=== PATIENT | male | born 1950 | race Caucasian/White ===

== ENCOUNTER 2024-03-20 16:52 | Inpatient (IN) | payer OTHER, MEDICARE ==
[~2024-03-20] VITALS: Ht 177.8 cm; Wt 82.7 kg
[2024-03-20 17:54] LABS: BASOPHILS % (AUTO) 0.5 % (0-1); EOSINOPHILS # (AUTO) 0.1 X10'3 (0-0.9); HEMATOCRIT 40.2 % (42.0-52.0); HEMOGLOBIN 13.5 g/dl (14.0-17.9); LYMPHOCYTES # (AUTO) 1.1 X10'3 (1.1-4.8); LYMPHOCYTES % (AUTO) 16.5 % (21-51); MEAN CORPUSCULAR HGB CONC 33.5 g/dL (33.0-36.5); MEAN CORPUSCULAR VOLUME 86.6 FL (78-98); MEAN PLATELET VOLUME 8.8 FL (7.4-10.4); MONOCYTES # (AUTO) 0.6 X10'3 (0-0.9); MONOCYTES % (AUTO) 8.9 % (2-12); NEUTROPHILS # (AUTO) 4.8 X10'3 (1.8-7.7); NEUTROPHILS % (AUTO) 72.1 % (42-75); PLATELET COUNT 232 X10'3 (140-440); RED BLOOD COUNT 4.64 X10'6 (4.70-6.10); RED CELL DISTRIBUTION WIDTH 14.7 % (11.5-14.5); WHITE BLOOD COUNT 6.6 X10'3 (4.5-11.0)
[2024-03-20 18:13] LABS: ALBUMIN 3.6 G/DL (3.4-5.0); ANION GAP 6 (8-16); BLOOD UREA NITROGEN 19 MG/DL (7-18); CALCIUM 8.7 MG/DL (8.5-10.1); CHLORIDE 109 MMOL/L (99-107); GLUCOSE 93 MG/DL (70-104); POTASSIUM 4.3 MMOL/L (3.5-5.1); SODIUM 144 MMOL/L (135-145); THYROID STIMULATING HORMONE 1.17 ulU/ml (0.34-4.50); TOTAL CARBON DIOXIDE 29.1 MMOL/L (24-32); eCRCL 66 ML/MIN; eGFR 73 ML/MIN
[2024-03-20 18:16] LABS: ETHANOL < 10 MG/DL (<10)
[2024-03-20] MEDS ORDERED: ESCI-8 PO (19:46)
[2024-03-20] MEDS ORDERED: BUSP5TAB3 PO (19:46)
[2024-03-20] MEDS ORDERED: TRAZ150T78 PO (19:46)
[2024-03-20] MEDS ORDERED: GABA-530 PO (19:46)
[2024-03-20] MEDS ORDERED: LOP12.5T PO (19:46)
[2024-03-20] MEDS ORDERED: AMLO2.5T4 PO (19:46)
[2024-03-20] MEDS: haloperidol 5mg tablet PO ONE (23:12)
[2024-03-21 05:28] LABS: BILIRUBIN,URINE NEGATIVE (Neg); CLARITY,URINE CLEAR (Clear); COLOR,URINE STRAW (Yellow); GLUCOSE, URINE NEGATIVE (Neg); KETONES,URINE NEGATIVE (Neg); LEUKOCYTE ESTERASE ,URINE NEGATIVE (Neg); NITRITES, URINE NEGATIVE (Neg); OCCULT BLOOD,URINE TRACE-INTACT (Neg); PROTEIN,URINE NEGATIVE (Neg); UROBILINOGEN,URINE 0.2 E.U/dL (0.2-1.0)
[2024-03-21 05:31] LABS: UA COLLECTION TYPE VOIDED
[2024-03-21 05:34] LABS: BACTERIA,URINE NONE SEEN /HPF (Neg); MUCUS STRANDS NONE SEEN /LPF (Neg); RBC,URINE NONE SEEN /HPF (0-2); SQUAMOUS EPITHELIAL CELL,UR FEW /LPF (FEW); WBC,URINE 0-4 /HPF (0-4)
[2024-03-21 06:08] LABS: URINE AMPHETAMINE SCREEN NEGATIVE (Neg); URINE BARBITUATE SCREEN NEGATIVE (Neg); URINE BENZODIAZEPINES SCREEN NEGATIVE (Neg); URINE CANNABINOID SCREEN NEGATIVE (Neg); URINE COCAINE SCREEN NEGATIVE (Neg); URINE METHADONE SCREEN NEGATIVE (Neg); URINE OPIATE SCREEN NEGATIVE (Neg); URINE PHENCYCLIDINE SCREEN NEGATIVE (Neg)
[2024-03-21] MEDS: ESCITALOPRAM 10 mg tablet 10 MG TABLET PO SCH (09:03)
[2024-03-21] MEDS: busPIRone 5mg tablet PO SCH (09:03)
[2024-03-21] MEDS: metoprolol tartrate 25mg tablet PO SCH (09:03)
[2024-03-21] MEDS: amLODIPine 2.5mg tablet PO SCH (09:03)
[2024-03-21] MEDS: gabapentin 100mg capsule PO SCH (09:03)
[2024-03-21] MEDS ORDERED: magnesium sulf-water 2g/50mL 50 ML IV PRN (19:35)
[2024-03-21] MEDS ORDERED: magnesium sulf-water 4G/100mL 100 ML IV PRN (19:35)
[2024-03-21] MEDS ORDERED: potassium Cl 20 mEq SR tablet PO PRN ×2 (19:35)
[2024-03-21] MEDS ORDERED: potassium Cl 40MEQ/1/2NS 520ml 520 ML IV PRN (19:35)
[2024-03-21] MEDS ORDERED: magnesium Cl slow-release 64mg tablet PO PRN (19:35)
[2024-03-21] MEDS: traZODone 150mg tablet PO SCH (19:54)
[2024-03-21] MEDS: K and/or MAG REPLACEMENT MC SCH (19:55)
[2024-03-21 21:52] VITALS: BP 152/88; PULSE 68; RESP 15; TEMP 97.6; O2SAT 98
[2024-03-21 22:26] VITALS: RESP 15; O2SAT 98
[2024-03-22 06:00] VITALS: BP 130/67; PULSE 58; RESP 16; TEMP 97.7; O2SAT 98
[2024-03-22 06:38] LABS: BASOPHILS % (AUTO) 0.4 % (0-1); EOSINOPHILS # (AUTO) 0.2 X10'3 (0-0.9); EOSINOPHILS % (AUTO) 2.2 % (0-6); HEMATOCRIT 39.7 % (42.0-52.0); HEMOGLOBIN 13.6 g/dl (14.0-17.9); LYMPHOCYTES # (AUTO) 1.5 X10'3 (1.1-4.8); LYMPHOCYTES % (AUTO) 20.7 % (21-51); MEAN CORPUSCULAR HEMOGLOBIN 29.6 PG (27.0-31.0); MEAN CORPUSCULAR HGB CONC 34.4 g/dL (33.0-36.5); MEAN PLATELET VOLUME 8.5 FL (7.4-10.4); MONOCYTES # (AUTO) 0.8 X10'3 (0-0.9); MONOCYTES % (AUTO) 11.1 % (2-12); NEUTROPHILS # (AUTO) 4.6 X10'3 (1.8-7.7); NEUTROPHILS % (AUTO) 65.6 % (42-75); PLATELET COUNT 223 X10'3 (140-440); RED BLOOD COUNT 4.62 X10'6 (4.70-6.10); RED CELL DISTRIBUTION WIDTH 14.5 % (11.5-14.5); WHITE BLOOD COUNT 7.1 X10'3 (4.5-11.0)
[2024-03-22 06:54] LABS: ALBUMIN 3.5 G/DL (3.4-5.0); ANION GAP 8 (8-16); BLOOD UREA NITROGEN 15 MG/DL (7-18); BUN/CREATININE RATIO 16.5 (10.0-20.0); CALCIUM 8.8 MG/DL (8.5-10.1); CHLORIDE 103 MMOL/L (99-107); CREATININE 0.91 MG/DL (0.60-1.10); GLUCOSE 82 MG/DL (70-104); POTASSIUM 3.6 MMOL/L (3.5-5.1); SODIUM 140 MMOL/L (135-145); TOTAL CARBON DIOXIDE 28.6 MMOL/L (24-32); eCRCL 72 ML/MIN; eGFR 81 ML/MIN
[2024-03-22 08:00] VITALS: RESP 16; O2SAT 98
[2024-03-22 10:00] VITALS: BP 101/57; PULSE 69; RESP 18; TEMP 97.1; O2SAT 100
[2024-03-22 18:00] VITALS: BP 122/66; PULSE 67; RESP 16; TEMP 97.7; O2SAT 97
[2024-03-22 20:00] VITALS: RESP 17; O2SAT 96
[2024-03-22 22:00] VITALS: BP 129/61; PULSE 77; RESP 13; TEMP 97.7; O2SAT 99
[2024-03-23 05:00] VITALS: BP 110/74; PULSE 85; RESP 18; TEMP 98.1; O2SAT 98
[2024-03-23 06:22] LABS: BASOPHILS % (AUTO) 0.4 % (0-1); EOSINOPHILS # (AUTO) 0.2 X10'3 (0-0.9); EOSINOPHILS % (AUTO) 2.2 % (0-6); HEMATOCRIT 41.7 % (42.0-52.0); LYMPHOCYTES # (AUTO) 1.6 X10'3 (1.1-4.8); LYMPHOCYTES % (AUTO) 20.2 % (21-51); MEAN CORPUSCULAR HEMOGLOBIN 29.3 PG (27.0-31.0); MEAN CORPUSCULAR HGB CONC 33.7 g/dL (33.0-36.5); MEAN CORPUSCULAR VOLUME 87.1 FL (78-98); MEAN PLATELET VOLUME 8.4 FL (7.4-10.4); MONOCYTES # (AUTO) 0.8 X10'3 (0-0.9); MONOCYTES % (AUTO) 9.6 % (2-12); NEUTROPHILS # (AUTO) 5.3 X10'3 (1.8-7.7); NEUTROPHILS % (AUTO) 67.6 % (42-75); PLATELET COUNT 244 X10'3 (140-440); RED BLOOD COUNT 4.79 X10'6 (4.70-6.10); RED CELL DISTRIBUTION WIDTH 14.7 % (11.5-14.5); WHITE BLOOD COUNT 7.8 X10'3 (4.5-11.0)
[2024-03-23 06:31] LABS: ALBUMIN 3.5 G/DL (3.4-5.0); ANION GAP 6 (8-16); BLOOD UREA NITROGEN 19 MG/DL (7-18); BUN/CREATININE RATIO 21.1 (10.0-20.0); CALCIUM 8.8 MG/DL (8.5-10.1); CHLORIDE 102 MMOL/L (99-107); GLUCOSE 95 MG/DL (70-104); POTASSIUM 4.1 MMOL/L (3.5-5.1); SODIUM 137 MMOL/L (135-145); TOTAL CARBON DIOXIDE 29.2 MMOL/L (24-32); eCRCL 73 ML/MIN; eGFR 82 ML/MIN
[2024-03-23 08:00] VITALS: RESP 18; O2SAT 98
[2024-03-23 10:00] VITALS: BP 111/62; PULSE 64; RESP 18; TEMP 97.5; O2SAT 98
[2024-03-23 18:00] VITALS: BP 128/68; PULSE 63; RESP 16; TEMP 97.7; O2SAT 98
[2024-03-23 20:00] VITALS: RESP 16; O2SAT 98
[2024-03-23 22:00] VITALS: BP 123/71; PULSE 67; RESP 18; TEMP 97.8; O2SAT 98
[2024-03-24 05:58] LABS: BASOPHILS % (AUTO) 0.4 % (0-1); EOSINOPHILS # (AUTO) 0.2 X10'3 (0-0.9); EOSINOPHILS % (AUTO) 2.6 % (0-6); HEMATOCRIT 39.4 % (42.0-52.0); HEMOGLOBIN 13.2 g/dl (14.0-17.9); LYMPHOCYTES # (AUTO) 1.6 X10'3 (1.1-4.8); LYMPHOCYTES % (AUTO) 21.3 % (21-51); MEAN CORPUSCULAR HEMOGLOBIN 28.9 PG (27.0-31.0); MEAN CORPUSCULAR HGB CONC 33.4 g/dL (33.0-36.5); MEAN CORPUSCULAR VOLUME 86.6 FL (78-98); MEAN PLATELET VOLUME 8.4 FL (7.4-10.4); MONOCYTES # (AUTO) 0.8 X10'3 (0-0.9); MONOCYTES % (AUTO) 11.1 % (2-12); NEUTROPHILS # (AUTO) 4.7 X10'3 (1.8-7.7); NEUTROPHILS % (AUTO) 64.6 % (42-75); PLATELET COUNT 223 X10'3 (140-440); RED BLOOD COUNT 4.56 X10'6 (4.70-6.10); RED CELL DISTRIBUTION WIDTH 14.8 % (11.5-14.5); WHITE BLOOD COUNT 7.4 X10'3 (4.5-11.0)
[2024-03-24 06:00] VITALS: BP 125/73; PULSE 63; RESP 16; TEMP 97.4; O2SAT 92
[2024-03-24 06:20] LABS: ALBUMIN 3.1 G/DL (3.4-5.0); ANION GAP 5 (8-16); BLOOD UREA NITROGEN 19 MG/DL (7-18); BUN/CREATININE RATIO 19.2 (10.0-20.0); CALCIUM 8.5 MG/DL (8.5-10.1); CHLORIDE 105 MMOL/L (99-107); CREATININE 0.99 MG/DL (0.60-1.10); GLUCOSE 66 MG/DL (70-104); SODIUM 140 MMOL/L (135-145); TOTAL CARBON DIOXIDE 30.3 MMOL/L (24-32); eCRCL 67 ML/MIN; eGFR 74 ML/MIN
[2024-03-24 08:00] VITALS: RESP 16; O2SAT 92
[2024-03-24 10:00] VITALS: BP 112/61; PULSE 57; RESP 22; TEMP 98.4; O2SAT 97
[2024-03-24 18:00] VITALS: BP 128/64; PULSE 64; RESP 12; TEMP 97.6; O2SAT 99
[2024-03-24] MEDS: risperiDONE 0.25mg tablet PO SCH (20:57)
[2024-03-24 22:00] VITALS: BP 104/49; PULSE 62; RESP 16; TEMP 97.6; O2SAT 96
[2024-03-25 06:00] VITALS: BP 136/63; PULSE 61; RESP 16; TEMP 97.7; O2SAT 100
[2024-03-25 06:38] LABS: BASOPHILS % (AUTO) 0.4 % (0-1); EOSINOPHILS # (AUTO) 0.2 X10'3 (0-0.9); EOSINOPHILS % (AUTO) 1.7 % (0-6); HEMATOCRIT 41.9 % (42.0-52.0); HEMOGLOBIN 14.1 g/dl (14.0-17.9); LYMPHOCYTES # (AUTO) 1.2 X10'3 (1.1-4.8); LYMPHOCYTES % (AUTO) 11.5 % (21-51); MEAN CORPUSCULAR HGB CONC 33.7 g/dL (33.0-36.5); MEAN CORPUSCULAR VOLUME 86.2 FL (78-98); MEAN PLATELET VOLUME 8.2 FL (7.4-10.4); MONOCYTES # (AUTO) 0.9 X10'3 (0-0.9); MONOCYTES % (AUTO) 8.9 % (2-12); NEUTROPHILS # (AUTO) 8.1 X10'3 (1.8-7.7); NEUTROPHILS % (AUTO) 77.5 % (42-75); PLATELET COUNT 232 X10'3 (140-440); RED BLOOD COUNT 4.86 X10'6 (4.70-6.10); RED CELL DISTRIBUTION WIDTH 14.5 % (11.5-14.5); WHITE BLOOD COUNT 10.5 X10'3 (4.5-11.0)
[2024-03-25 06:56] LABS: ALBUMIN 3.3 G/DL (3.4-5.0); ANION GAP 4 (8-16); BLOOD UREA NITROGEN 20 MG/DL (7-18); BUN/CREATININE RATIO 20.4 (10.0-20.0); CALCIUM 8.7 MG/DL (8.5-10.1); CHLORIDE 103 MMOL/L (99-107); CREATININE 0.98 MG/DL (0.60-1.10); GLUCOSE 88 MG/DL (70-104); MAGNESIUM 2.1 MG/DL (1.5-2.4); POTASSIUM 4.7 MMOL/L (3.5-5.1); SODIUM 138 MMOL/L (135-145); TOTAL CARBON DIOXIDE 31.4 MMOL/L (24-32); eCRCL 67 ML/MIN; eGFR 75 ML/MIN
[2024-03-25 08:00] VITALS: RESP 16; O2SAT 100
[2024-03-25 10:00] VITALS: BP 111/63; PULSE 68; RESP 12; TEMP 97.3; O2SAT 95
[2024-03-25 18:00] VITALS: BP 105/61; PULSE 63; RESP 16; TEMP 98; O2SAT 96
[2024-03-25 22:00] VITALS: BP 108/74; PULSE 55; RESP 16; TEMP 97.5; O2SAT 98
[2024-03-26 06:00] VITALS: BP 127/74; PULSE 66; RESP 16; TEMP 97.8; O2SAT 97
[2024-03-26 06:58] LABS: BASOPHILS % (AUTO) 0.6 % (0-1); EOSINOPHILS # (AUTO) 0.2 X10'3 (0-0.9); EOSINOPHILS % (AUTO) 2.8 % (0-6); HEMATOCRIT 40.4 % (42.0-52.0); HEMOGLOBIN 13.5 g/dl (14.0-17.9); LYMPHOCYTES # (AUTO) 1.3 X10'3 (1.1-4.8); LYMPHOCYTES % (AUTO) 19.8 % (21-51); MEAN CORPUSCULAR HEMOGLOBIN 28.5 PG (27.0-31.0); MEAN CORPUSCULAR HGB CONC 33.3 g/dL (33.0-36.5); MEAN CORPUSCULAR VOLUME 85.7 FL (78-98); MEAN PLATELET VOLUME 8.2 FL (7.4-10.4); MONOCYTES # (AUTO) 0.8 X10'3 (0-0.9); MONOCYTES % (AUTO) 12.3 % (2-12); NEUTROPHILS # (AUTO) 4.2 X10'3 (1.8-7.7); NEUTROPHILS % (AUTO) 64.5 % (42-75); PLATELET COUNT 222 X10'3 (140-440); RED BLOOD COUNT 4.72 X10'6 (4.70-6.10); RED CELL DISTRIBUTION WIDTH 14.5 % (11.5-14.5); WHITE BLOOD COUNT 6.5 X10'3 (4.5-11.0)
[2024-03-26 07:02] LABS: ANION GAP 5 (8-16); BLOOD UREA NITROGEN 22 MG/DL (7-18); BUN/CREATININE RATIO 20.4 (10.0-20.0); CALCIUM 8.6 MG/DL (8.5-10.1); CHLORIDE 103 MMOL/L (99-107); CREATININE 1.08 MG/DL (0.60-1.10); GLUCOSE 89 MG/DL (70-104); POTASSIUM 4.6 MMOL/L (3.5-5.1); SODIUM 138 MMOL/L (135-145); TOTAL CARBON DIOXIDE 30.5 MMOL/L (24-32); eCRCL 61 ML/MIN; eGFR 67 ML/MIN
[2024-03-26 08:00] VITALS: RESP 16; O2SAT 97
[2024-03-26 10:23] VITALS: BP 110/61; PULSE 65; RESP 16; TEMP 98.1; O2SAT 100
[2024-03-26 18:00] VITALS: BP 111/66; PULSE 72; RESP 16; TEMP 97.2; O2SAT 100
[2024-03-26 22:00] VITALS: BP 100/66; PULSE 60; RESP 18; TEMP 96.8; O2SAT 98
[2024-03-27 07:05] VITALS: BP 128/71; PULSE 70; RESP 16; TEMP 97.5; O2SAT 96
[2024-03-27 10:00] VITALS: BP 108/62; PULSE 70; RESP 16; TEMP 97.2; O2SAT 94
[2024-03-27] MEDS ORDERED: TRAZ-256 PO (15:25)
[2024-03-27 18:00] VITALS: BP 119/80; PULSE 66; RESP 16; TEMP 97.8; O2SAT 99
[2024-03-27 22:00] VITALS: BP 116/58; PULSE 67; RESP 16; TEMP 97.9; O2SAT 97
[2024-03-28 06:00] VITALS: BP 142/67; PULSE 55; RESP 16; TEMP 96.9; O2SAT 97
[2024-03-28 08:00] VITALS: RESP 16; O2SAT 97
[2024-03-28 10:00] VITALS: BP 142/67; PULSE 55; RESP 16; TEMP 96.9; O2SAT 97
[2024-03-28 18:00] VITALS: BP 154/73; PULSE 61; RESP 16; TEMP 97.9; O2SAT 100
[2024-03-28 20:26] VITALS: RESP 16; O2SAT 100
[2024-03-28 22:00] VITALS: BP 101/55; PULSE 62; RESP 16; TEMP 97.6; O2SAT 97
[2024-03-29 06:00] VITALS: BP 120/70; PULSE 60; RESP 16; TEMP 97.4; O2SAT 97
[2024-03-29 08:00] VITALS: RESP 16; O2SAT 97
[2024-03-29 10:00] VITALS: BP 141/74; PULSE 66; RESP 16; TEMP 97.4; O2SAT 99
[2024-03-29 18:00] VITALS: BP 127/73; PULSE 66; RESP 18; TEMP 97.1; O2SAT 98
[2024-03-29 22:00] VITALS: BP 120/70; PULSE 60; RESP 16; TEMP 97.4; O2SAT 99
[2024-03-30 06:00] VITALS: BP 116/58; PULSE 66; RESP 16; TEMP 97.4; O2SAT 97
[2024-03-30 09:16] LABS: BASOPHILS % (AUTO) 0.5 % (0-1); EOSINOPHILS # (AUTO) 0.2 X10'3 (0-0.9); EOSINOPHILS % (AUTO) 2.3 % (0-6); HEMATOCRIT 40.8 % (42.0-52.0); HEMOGLOBIN 13.6 g/dl (14.0-17.9); LYMPHOCYTES # (AUTO) 1.4 X10'3 (1.1-4.8); LYMPHOCYTES % (AUTO) 20.8 % (21-51); MEAN CORPUSCULAR HEMOGLOBIN 28.7 PG (27.0-31.0); MEAN CORPUSCULAR HGB CONC 33.4 g/dL (33.0-36.5); MEAN CORPUSCULAR VOLUME 86.2 FL (78-98); MEAN PLATELET VOLUME 7.9 FL (7.4-10.4); MONOCYTES # (AUTO) 0.6 X10'3 (0-0.9); MONOCYTES % (AUTO) 8.4 % (2-12); NEUTROPHILS # (AUTO) 4.5 X10'3 (1.8-7.7); PLATELET COUNT 265 X10'3 (140-440); RED BLOOD COUNT 4.74 X10'6 (4.70-6.10); RED CELL DISTRIBUTION WIDTH 14.3 % (11.5-14.5); WHITE BLOOD COUNT 6.7 X10'3 (4.5-11.0)
[2024-03-30 09:26] LABS: ALANINE AMINOTRANSFERASE 20 U/L (12-78); ALBUMIN 3.4 G/DL (3.4-5.0); ALKALINE PHOSPHATASE 73 IU/L (46-116); ANION GAP 4 (8-16); ASPARTATE AMINO TRANSFERASE 16 U/L (10-37); BILIRUBIN,TOTAL 0.3 MG/DL (0.1-1.0); BLOOD UREA NITROGEN 21 MG/DL (7-18); BUN/CREATININE RATIO 24.1 (10.0-20.0); CALCIUM 8.9 MG/DL (8.5-10.1); CHLORIDE 103 MMOL/L (99-107); CREATININE 0.87 MG/DL (0.60-1.10); GLUCOSE 129 MG/DL (70-104); POTASSIUM 4.2 MMOL/L (3.5-5.1); SODIUM 137 MMOL/L (135-145); TOTAL CARBON DIOXIDE 29.9 MMOL/L (24-32); TOTAL PROTEIN 6.7 G/DL (6.4-8.2); eCRCL 76 ML/MIN; eGFR 86 ML/MIN
[2024-03-30 10:00] VITALS: BP 103/56; PULSE 72; RESP 18; TEMP 98.5; O2SAT 95
== END 2024-03-30 13:45 | disposition home or self-care (01) | DRG 948 ==
LOC: ER 16:52 → ORTHO 4S 03-21 19:36
PROVIDERS: ADMIT Internal Medicine; ATTEND Internal Medicine
DX: R41.0 Disorientation, unspecified (principal); F03.A11 Unspecified dementia, mild, with agitation; F32.A Depression, unspecified; G47.00 Insomnia, unspecified; Z20.822 Contact with and (suspected) exposure to COVID-19; I10 Essential (primary) hypertension; Z79.899 Other long term (current) drug therapy
CPT/HCPCS: 36415; 80048; 80053; 80305; 80320; 81001; 83735; 84132; 84443; 85025; 87081; 87811; 97116; 97161; 97530; 99285; G0378